=== PATIENT | female | born 1970 | race Caucasian/White ===

== ENCOUNTER → 2017-06-05 | Outpatient (CLI) | payer BC ==
--- NOTE | 2017-06-05 11:18 | Diagnostic Imaging Report ---
PROCEDURE:X-RAY ABDOMEN - KUB COMPARISON:None. INDICATIONS:multiple utis since feb 2017 FINDINGS: No dilated loops of bowel or abnormal air-fluid levels patterns. No free air underneath the diaphragm. Visualized portions of the lung bases are clear. There are 4 amorphous calcifications overlying the left hemipelvis.. Five non-rib bearing lumbar type vertebral bodies identified. CONCLUSION: 1. Nonobstructive bowel gas pattern. 2. There are four amorphous calcifications overlying the left hemipelvis. These could be within the left ureter. Consider stone protocol CT of the abdomen and pelvis for further evaluation. Dictated by: Deandre Velasquez M.D. on 06/05/2017 at 11:18 Electronically approved by: Deandre Velasquez M.D. on 06/05/2017 at 11:18
--- NOTE | 2017-06-05 12:04 | Diagnostic Imaging Report ---
PROCEDURE:US RETROPERITONEAL ( KIDNEY ). COMPARISON:None. INDICATIONS:Urinary Tract Infection TECHNIQUE: Avalos-scale and color sonographic images of the bilateral kidneys and bladder where obtained in transverse and longitudinal planes. FINDINGS: RIGHT KIDNEY: 11.1 cm, cortex, 1.6 cm Cysts: Simple cyst in the superior pole of the right kidney measured 3.4 x 3.2 x 3.6 cm Solid masses: None Stones: None Hydronephrosis: None Echogenicity: Normal LEFT KIDNEY: 10.8 cm, cortex 1.4 cm Cysts: None Solid masses: None Stones: None Hydronephrosis: None Echogenicity: Normal Bladder: Normal Incidental findings: The spleen is enlarged, measuring 14.7 cm in length. The liver is heterogeneous in echotexture. This is incompletely evaluated on this examination. CONCLUSION: 3.4 cm simple right renal cyst. No hydronephrosis, stones, or solid renal masses. Dictated by: Deandre Velasquez M.D. on 06/05/2017 at 12:03 Electronically approved by: Deandre Velasquez M.D. on 06/05/2017 at 12:03
== END ==
LOC: US 10:36
PROVIDERS: ATTEND Urology
DX: N39.0 Urinary tract infection, site not specified (principal); N28.1 Cyst of kidney, acquired
CPT/HCPCS: 74018; 76770